=== PATIENT | female | born 1955 ===

== ENCOUNTER 2020-03-07 06:05 | Inpatient (IN) | payer BC ==
[2020-03-07] MEDS ORDERED: Cefepime 2 GM VIAL ONE (06:32)
[2020-03-07 07:02] LABS: ALT (SGPT) 36 U/L (8-55); AST (SGOT) 27 U/L (5-34); Albumin 2.2 g/dL (3.4-4.8); Alkaline Phosphatase 95 U/L (40-110); Anion Gap 16 mmol/L (10-20); BUN (Urea Nitrogen) 66 mg/dL (9.8-20.1); Bilirubin, Total 0.5 mg/dL (0.2-1.2); Calc. Creatinine Clearance 0 mL/min (70-130); Calcium 7.3 mg/dL (7.8-10.44); Carbon Dioxide 22 mmol/L (23-31); Chloride 99 mmol/L (98-107); Estimated GFR-MDRD 12; Globulin 2.2 g/dL (2.4-3.5); Glucose 109 mg/dL (80-115); Hemoglobin 8.2 g/dL (12.0-16.0); Lipase 17 U/L (8-78); Mean Corpuscular HGB CONC 31.7 g/dL (32.0-36.0); Mean Corpuscular Hemoglobin 28.4 pg (27.0-31.0); Mean Corpuscular Volume 89.7 fL (78.0-98.0); Mean Platelet Volume 8.6 fL (7.4-10.4); Platelet Count 154 thou/uL (130-400); Protein, Total 4.4 g/dL (6.0-8.3); RBC Distribution Width 18.1 % (11.5-14.5); Red Blood Cell (RBC) Count 2.88 mill/uL (4.20-5.40); Sodium 132 mmol/L (136-145); White Blood Cell (WBC) Count 20.2 thou/uL (4.8-10.8)
[2020-03-07 07:14] LABS: Bilirubin Negative (Negative); Blood, Urine Large (Negative); Glucose, Urine (Dipstick) Negative (Negative); Ketone, Urine Trace mg/dL (Negative); Leukocyte Trace (Negative); Nitrite Negative (Negative); Protein, Urine (Dipstick) > or equal to 300 mg/dL (Neg-Trace); Specific Gravity, Urine 1.025 (1.005-1.030); Urobilinogen 0.2 mg/dL (Less than 2); pH, Urine 5.5 (5.0-9.0)
[2020-03-07 07:18] LABS: Clarity Turbid (Clear)
[2020-03-07 07:21] LABS: Bacteria/HPF 3+ HPF (None Seen); RBC/HPF Greater than 50 HPF (0-3); Renal Epithelial 0-3 HPF (None Seen); WBC/HPF Greater Than 50 HPF (0-3)
[2020-03-07 07:21] LABS: Anisocytosis SLIGHT = 6-15 cells (100X) (0-5/hpf); Band 26 % (5-11); Basophilic Stippling SLIGHT = 1-2 cells (100X) (None Seen); Hypochromia SLIGHT = 6-15 cells (100X) (0-5/hpf); Lymphocytes 12 % (21-51); MDiff Complete? YES; Metamyelocyte 1 % (0-0); Monocytes 1 % (0-10); Neutrophil 60 % (42-75); Platelet Morphology Comment Appears Adequate; Polychromasia MODERATE = 3-4 cells (100X) (0-2/hpf); Toxic Granulation SLIGHT
[2020-03-07 07:25] LABS: CKMB 1.4 ng/mL (0-6.6)
--- NOTE | 2020-03-07 07:35 | CT ---
CT ABDOMEN AND PELVIS WITHOUT CONTRAST: Date: 03/07/2020 COMPARISON: None. HISTORY: Fever and sepsis. Right lower extremity osteomyelitis. Altered mental status and kidney injury. TECHNIQUE: Multiple contiguous axial images were obtained in a CT of the abdomen and pelvis without contrast. Sa gittal and coronal reformats were performed. FINDINGS: The liver, gallbladder, kidneys, adrenal glands, spleen, and pancreas are unremarkable, although eval uation is limited without IV contrast. No free air, free fluid, or stranding changes are seen in the abdomen or pelvis. The reproductive organs are unremarkable. A Hickman catheter decompresses the urinary bladder. The larg e and small bowel are unremarkable. The appendix is normal. No abdominal or pelvic lymphadenopathy se en. Atherosclerotic calcifications are seen in the aorta. Consolidation is seen in the right lower lobe. There are trace bilateral pleural effusions. The bones are unremarkable. There is a 5.2 cm lipoma along the oblique abdominal musculature on the left abdom inal wall. IMPRESSION: 1. No evidence of acute intra-abdominal/pelvic abnormality. 2. Right lower lobe pneumonia. POS: EAA
--- NOTE | 2020-03-07 07:45 | RAD ---
RADIOGRAPH CHEST 1 VIEW: DATE: 03/07/2020 TIME: 6:33 AM HISTORY: 64-year-old female with sepsis COMPARISON: none FINDINGS: Patchy airspace opacities at right lower and mid lung zones. Elevated right hemidiaphragm. No pulmona ry edema or cardiomegaly. Left lung clear. No pneumothorax. IMPRESSION: Right-sided atelectasis versus pneumonia.
--- NOTE | 2020-03-07 07:48 | PDOC.HHP ---
Hospitalist HPI - History of Present Illness History of Present Illness: please refer to reviewed H&P from same day Hospitalist Results - Labs Result Diagrams: 03/07/20 06:33 03/07/20 06:33 Lab results: WBC 20.2 thou/uL (4.8-10.8) H 03/07/20 06:33 Hgb 8.2 g/dL (12.0-16.0) L 03/07/20 06:33 Hct 25.8 % (36.0-47.0) L 03/07/20 06:33 MCV 89.7 fL (78.0-98.0) 03/07/20 06:33 Plt Count 154 thou/uL (130-400) 03/07/20 06:33 Band Neuts % (Manual) 26 % (5-11) H 03/07/20 06:33 Sodium 132 mmol/L (136-145) L 03/07/20 06:33 Potassium 5.0 mmol/L (3.5-5.1) 03/07/20 06:33 Chloride 99 mmol/L (98-107) 03/07/20 06:33 Carbon Dioxide 22 mmol/L (23-31) L 03/07/20 06:33 BUN 66 mg/dL (9.8-20.1) H 03/07/20 06:33 Creatinine 3.73 mg/dL (0.6-1.1) H 03/07/20 06:33 Glucose 109 mg/dL (80-115) 03/07/20 06:33 Lactic Acid 1.1 mmol/L (0.5-2.2) 03/07/20 06:33 Calcium 7.3 mg/dL (7.8-10.44) L 03/07/20 06:33 Total Bilirubin 0.5 mg/dL (0.2-1.2) 03/07/20 06:33 AST 27 U/L (5-34) 03/07/20 06:33 ALT 36 U/L (8-55) 03/07/20 06:33 Alkaline Phosphatase 95 U/L (40-110) 03/07/20 06:33 CK-MB (CK-2) 1.4 ng/mL (0-6.6) 03/07/20 06:33 Troponin I 0.123 ng/mL (< 0.028) H 03/07/20 06:33 Serum Total Protein 4.4 g/dL (6.0-8.3) L 03/07/20 06:33 Albumin 2.2 g/dL (3.4-4.8) L 03/07/20 06:33 Lipase 17 U/L (8-78) 03/07/20 06:33 Urine Ketones Trace mg/dL (Negative) A 03/07/20 06: Urine Blood Large (Negative) A 03/07/20: Urine Nitrite Negative (Negative) 03/07/20 06: Ur Leukocyte Esterase Trace (Negative) H 03/07/20 06:26 Urine RBC Greater than 50 HPF (0-3) A 03/07/20 06: Urine WBC Greater Than 50 HPF (0-3) A 03/07/20 06:26 Ur Squamous Epith Cells 4-6 HPF (0-3) A 03/07/20 06: Urine Bacteria 3+ HPF (None Seen) A 03/07/20 06:26
[2020-03-07] MEDS ORDERED: Sodium Chloride 0.9% 1,000 ML IV SCH (08:00)
[2020-03-07] MEDS ORDERED: Meropenem 2 GM in Sodium Chloride 0.9% 100 ML IVPB SCH (08:00)
[2020-03-07] MEDS ORDERED: Gabapentin 100 MG CAP PO SCH (09:00)
[2020-03-07] MEDS ORDERED: Doxycycline 100 MG in Syringe 0 ML IVPB SCH (09:00)
[2020-03-07] MEDS ORDERED: MEROPENEM 1 GM/50 ML 1 GM in Premix Bag 1 BAG IVPB SCH (14:00)
[2020-03-07] MEDS ORDERED: Meropenem 1 GM in Sodium Chloride 0.9% 100 ML IVPB SCH (14:00)
--- NOTE | 2020-03-07 14:59 | PDOC.HHP ---
Hospitalist HPI - History of Present Illness right lower lobe pneumonia and complicated UTI History of Present Illness: Shira Mackey is a 64 year old female who presents with drowsiness and fever. On Aug 18 2019 in [facility], she was diagnosed with central retinal artery occlusion in her right eye. She was having episodic periods of blindness in her right eye. A few days later she returned to the [place] and her reports she began having cyclic fevers ranging from 102F to 107F. She was then diagnosed with GCA and started on a prednisone taper. After her prednisone taper treatment she began to have swelling which caused skin fragility, resulting in RLE cellulitis and admission to [facility] for sepsis with pseudomonal bacteremia and oliguric MANNIE thought to be related to sepsis resulting in uremic encephalopathy. She completed treatment with cefepime (2 weeks) and her renal function and encephalopathy improved, and she was discharged [facility]. She initially improved but the day prior to discharge she became drowsy, so was sent to the ED. PMH: Hypothyroidism CKD GCA (on prednisone 12.5mg PO daily) Type II DM HTN PSH: Ovarian tumor removal (5-10 years ago) Medications: Reconciled Allergies: NKDA FHx: Mother: 5 years ago and had complicated type II diabetes Father: 10 years from an [place] Denies fever/chills, nausea, vomiting, fatigue, generalized weakness and rectal bleeding. ED Course: In the ED, she was found to be febrile, hypotensive, tachypnic and tachycardic. UA c/w UTI, subacute cedillo replaced, CXR showing RLL consolidation. Responded to fluids and was admitted to the floor for further management Hospitalist ROS - Review of Systems All other systems reviewed; all pertinent +/- noted in HPI/Subj Hospitalist History - Past Medical History Source: patient (as per HPI), family - Exam General Appearance: ill appearing General - other findings: drowsy Eye: PERRL, anicteric sclera ENT: normocephalic atraumatic, no oropharyngeal lesions, dry oral mucosa Neck: no JVD Neck - other findings: no neck stiffness Heart: RRR, no murmur, no gallops, no rubs, normal peripheral pulses Respiratory: CTAB, no wheezes, no rales, no ronchi, normal chest expansion Gastrointestinal: soft, non-tender, non-distended, normal bowel sounds, no palpable masses, no guarding, no rigidity Extremities: no cyanosis, no clubbing, 1+ LE edema Skin - other findings: multiple RLE superficial patchy excoriation, appear noninfected Psychiatric: normal affect, normal behavior, A&O x 3 Hospitalist Results - Labs Result Diagrams: 03/07/20 06:33 03/07/20 06:33 Lab results: WBC 20.2 thou/uL (4.8-10.8) H 03/07/20 06:33 Hgb 8.2 g/dL (12.0-16.0) L 03/07/20 06:33 Hct 25.8 % (36.0-47.0) L 03/07/20 06:33 MCV 89.7 fL (78.0-98.0) 03/07/20 06:33 Plt Count 154 thou/uL (130-400) 03/07/20 06:33 Band Neuts % (Manual) 26 % (5-11) H 03/07/20 06:33 Sodium 132 mmol/L (136-145) L 03/07/20 06:33 Potassium 5.0 mmol/L (3.5-5.1) 03/07/20 06:33 Chloride 99 mmol/L (98-107) 03/07/20 06:33 Carbon Dioxide 22 mmol/L (23-31) L 03/07/20 06:33 BUN 66 mg/dL (9.8-20.1) H 03/07/20 06:33 Creatinine 3.73 mg/dL (0.6-1.1) H 03/07/20 06:33 Glucose 109 mg/dL (80-115) 03/07/20 06:33 Lactic Acid 1.1 mmol/L (0.5-2.2) 03/07/20 06:33 Calcium 7.3 mg/dL (7.8-10.44) L 03/07/20 06:33 Total Bilirubin 0.5 mg/dL (0.2-1.2) 03/07/20 06:33 AST 27 U/L (5-34) 03/07/20 06:33 ALT 36 U/L (8-55) 03/07/20 06:33 Alkaline Phosphatase 95 U/L (40-110) 03/07/20 06:33 CK-MB (CK-2) 1.4 ng/mL (0-6.6) 03/07/20 06:33 Troponin I 0.123 ng/mL (< 0.028) H 03/07/20 06:33 Serum Total Protein 4.4 g/dL (6.0-8.3) L 03/07/20 06:33 Albumin 2.2 g/dL (3.4-4.8) L 03/07/20 06:33 Lipase 17 U/L (8-78) 03/07/20 06:33 Urine Ketones Trace mg/dL (Negative) A 03/07/20 06:26 Urine Blood Large (Negative) A 03/07/20 06:26 Urine Nitrite Negative (Negative) 03/07/20 06:26 Ur Leukocyte Esterase Trace (Negative) H 03/07/20 06:26 Urine RBC Greater than 50 HPF (0-3) A 03/07/20 06:26 Urine WBC Greater Than 50 HPF (0-3) A 03/07/20 06:26 Ur Squamous Epith Cells 4-6 HPF (0-3) A 03/07/20 06:26 Urine Bacteria 3+ HPF (None Seen) A 03/07/20 06:26 - Radiology Interpretation Chest x-ray Status: report reviewed by me Additional Comment: RLL consolidation Hospitalist H&P A/P - Problem (1) Right lower lobe pneumonia Code(s): J18.9 - PNEUMONIA, UNSPECIFIED ORGANISM Status: Acute Qualifiers: Pneumonia type: aspiration pneumonia (2) Complicated UTI (urinary tract infection) Code(s): N39.0 - URINARY TRACT INFECTION, SITE NOT SPECIFIED Status: Acute (3) Wound of left lower extremity Code(s): S81.802A - UNSPECIFIED OPEN WOUND, LEFT LOWER LEG, INITIAL ENCOUNTER Status: Acute - Plan Plan: #Sepsis #aspiration pneumonia/HAP -qSOFA 2/3 on presentation; responded to fluid resuscitation -per , multiple coughing episodes while drowsy day prior to presentation ; CXR c/w aspiration, febrile, neutrophilia with bandemia -Cedillo placed 3 weeks ago; UA contaminated; replaced on presentation; -ID consulted -started empiric meropenem, linezolid, and doxycyline -Match I/O -repeat UA -Blood culture; respiratory culture #MANNIE on CKD -likely related to reduced effective perfusion in context of third spacing due to hypoalbuminemia and extensive RLE injury -IVF with albumin to increase oncotic pressure and bring back fluids from third space intravascularly -nephrology onboard #RLE superficial excoriations s/p extensive cellulitis -wound care consulted #GCA -continue home prednisone 12.5mg PO qd #hypothyroidism continue home levothyroxine 112mcg PO 0600 #HTN -hold antiHTN in context of sepsis; hold torsemide Dispo/PPx: full code. is MPOA GI PPx: pantoprazole DVT PPx: lovenox
[2020-03-07] MEDS ORDERED: Albumin 25% 25 GM/100 ML BOT IVPB SCH (16:00)
--- NOTE | 2020-03-07 16:35 | PRG ---
DATE OF SERVICE: 03/07/2020 REASON FOR CONSULTATION: [id number] renal failure. REQUESTING PHYSICIAN: Dr. Redmond. CHIEF COMPLAINT: Fever. HISTORY OF PRESENT ILLNESS: A 64-year-old female known to me from [facility] with multiple comorbidities including diabetes, hypertension, CKD with recent acute kidney injury, and physical deconditioning, now transferred over to [facility] due to acute onset of fever. The patient yesterday was noted to be lethargic, which was felt to be related to medication. She also was having chills. Later, the patient developed fever and was subsequently brought to the hospital. On initial presentation to this hospital, temperature was 100.9, which later went up to 102.2. Initial blood pressure was 130/66 with pulse of 96. However, during the course of ED evaluation, blood pressure did drop to a neither of 93/47 and improved with fluid resuscitation. The patient is more awake today. She was complaining of neuropathy and did receive Neurontin earlier today. There was no history of nausea, vomiting. Evaluation with CT scan of the abdomen showed right lower lung consolidation as well as mild bilateral pleural effusion and impression of pneumonia with sepsis to rule out urinary tract infection was made and the patient was started on broad-spectrum antibiotics. It was also noted that creatinine is up related to yesterday's figures. OBJECTIVE: VITAL SIGNS: Temperature 98.9, pulse 85, respiratory rate 18, SpO2 of 98% on room air, blood pressure is 117/50. GENERAL: Clinically ill-looking female, in no obvious distress. Afebrile, acyanotic. HEENT: Normocephalic, atraumatic. Oral mucosa is moist. NECK: Supple with no JVD. CARDIOVASCULAR: Regular rhythm and rate with normal heart sounds 1 and 2. RESPIRATORY: Fair air entry bilaterally with some transmitted breath sounds as well as crackles in right base. No respiratory distress was appreciated however. GI: Full, soft, nontender, nondistended with normal bowel sounds. UROGENITAL: Hickman catheter is in place draining some urine. MUSCULOSKELETAL: Right lower extremity wound with dressing extending from foot to the distal thigh. Generalized edema of the extremities as well as back noted. 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 Opens eye with stimulation and call. Oriented to person and place. Cranial nerves 2 through 12 are grossly intact. DIAGNOSTIC DATA: CBC today showed WBC count of 20.2, hemoglobin of 8.2, MCV of 89.2, platelet of 154. Chemistry showed sodium 132, potassium 5.0, chloride 99, CO2 of 22, BUN 66, creatinine 3.73, glucose 109, calcium 7.3, total bilirubin 0.5, AST 27, ALT 36, alkaline phosphatase 95, total protein 4.4, albumin 2.2, globulin 2.2. Lipase is 17. Lactic acid is 1.1. Initial cardiac markers showed troponin 0.123 and CK-MB 1.4. Urinalysis today showed turbid yellow urine with pH of 5.56 and specific gravity of 1.025. Protein is greater or equal to 300, ketone trace, blood large, nitrite negative, bilirubin negative, leukocyte esterase trace. Microscopy showed greater than 50 RBC and greater than 50 WBC with 3+ bacteria. Has Hickman catheter. Of note, chemistry yesterday showed BUN 62, creatinine 3.06. Urinalysis performed yesterday showed protein 300, negative nitrite, positive leukocyte esterase. Microscopy showed greater than 50 RBC and 21-50 WBC. Urine electrolytes showed random total protein of 749 with urine creatinine of 125 and calculated UPC of about 5 g/g of protein. Urine sodium was 22 and urine urea was 303. ASSESSMENT: 1. Acute kidney injury: Due to hemodynamic factors related to sepsis from either UTI and/or pneumonia. Contribution of intravascular contraction cannot be ruled out, given the patient was on diuretics and had severe hypoalbuminemia associated with anasarca. This was also noted that urine output has decreased recently. 2. Chronic kidney disease stage 3, at baseline. 3. Nephrotic-range proteinuria: Due to diabetic nephropathy. 4. Anasarca: Due to nephrotic-range proteinuria, volume resuscitation. Reportedly improved prior to discharge from [facility] in [place]. 5. Transient hypotension: Improved with IV fluid therapy. 6. Hypoalbuminemia. 7. Acute metabolic and toxic encephalopathy. PLAN: 1. Agree with fluid resuscitation. We will add albumin to expand intravascular space as well as help mobilize the third space fluid. 2. We will hold diuretics at this point. 3. We will monitor hemodynamics closely as well as urine intake, urine output. 4. Antibiotics as per primary attending. 5. Medication should be renally dosed. 6. Further treatment to follow depending on hospital course. We will recheck renal function test in the morning. Job ID: [id number]
[2020-03-07] MEDS ORDERED: DARBEPOETIN ALFA IN POLYSORBAT 60 MCG SC SCH (17:45)
[2020-03-07 18:27] LABS: Legionella Urinary Ag Negative (Negative); Strep pneumo Urine Ag NEGATIVE (NEGATIVE)
[2020-03-07 18:30] VITALS: BMI 28.4
[2020-03-07] MEDS: Enoxaparin Sodium 30 MG/0.3 ML SYRINGE SC SCH (21:05)
[2020-03-07] MEDS: Sodium Chloride 0.9% 1,000 ML IV SCH (21:05)
[2020-03-07 21:22] LABS: Bilirubin Negative (Negative); Blood, Urine 2+ (Negative); Clarity Turbid (Clear); Glucose, Urine (Dipstick) 300 mg/dL (Negative); Ketone, Urine Trace mg/dL (Negative); Leukocyte 250 Leu/uL (Negative); Nitrite Negative (Negative); Protein, Urine (Dipstick) 600 mg/dL (Neg-Trace); Specific Gravity, Urine 1.022 (1.002-1.036); Squamous Epithelial 0-3 HPF (0-3); Urobilinogen Normal mg/dL (Less than 2); WBC/HPF Greater than 50 HPF (0-3)
[2020-03-07] MEDS: Atorvastatin Calcium 40 MG TAB PO SCH (21:24)
[2020-03-07] MEDS: Senokot S 8.6-50 MG TAB PO SCH (21:24)
[2020-03-07] MEDS: Meropenem 500 MG in Sodium Chloride 0.9% 100 ML IVPB SCH (21:28)
[2020-03-07 21:38] LABS: Bacteria/HPF 2+ HPF (None Seen); Yeast-Budding 1+ HPF (None Seen)
[2020-03-07] MEDS: Gabapentin 100 MG CAP PO SCH (21:42)
[2020-03-07] MEDS: Linezolid 600 MG in Premix Bag 1 BAG IVPB SCH (22:09)
--- NOTE | 2020-03-07 23:25 | CON ---
DATE OF CONSULTATION: 03/07/2020 REASON FOR CONSULTATION: Fever. HISTORY OF PRESENT ILLNESS: A 64-year-old patient with history of giant cell arteritis, which is basically a clinical diagnosis, on prednisone and previously on tocilizumab, who was admitted to [facility] within the past 2 to 3 months for cellulitis in the right lower extremity associated with Pseudomonas aeruginosa bacteremia. The patient was transferred to [facility] in [place]. It is not clear the reason for the transfer, but she was there switched to cefepime. She was given clindamycin as well. I was able to review the records from both hospitals and there was no evidence that the patient had osteomyelitis. She was [facility] and she developed fever and was brought here for evaluation and was admitted. Initial findings included BP 130/66, pulse of 96, temperature 102.2, and O2 saturation was 97% on room air. On the exam in the emergency room, the only findings included bruising from prior abdominal subcu heparin shots and healed wounds in the right leg with good pulses. She was confused and thought that she was in a factory, not in the hospital, although she knew her name. Other findings on admission include a white cell count of 20.2, hemoglobin 8.2, platelets 154 with 26% bands. Her sodium was 132. Her creatinine is 3.73. Her creatinine in [facility] was 4.3, so this is actually a relative improvement compared with previous findings. Urinalysis with greater than 50 wbc's. Currently, Ms. Mackey is somewhat confused. She is complaining of pain in the lower extremities, particularly on the right side. She describes the pain as a burning sensation. She also has mild pain in the lower back, which is new according to her. She denies headaches. No visual symptoms, sore throat, odynophagia, or dysphagia. She is not dyspneic. Has no chest pain. PAST MEDICAL HISTORY: Hypothyroidism; dyslipidemia; type 2 diabetes; hypertension; CKD, stage 4; giant cell arteritis, clinical diagnosis, on chronic corticosteroids; recurrent episodes of delirium; cellulitis due to Pseudomonas aeruginosa with bacteremia; seizure activity; and hypertension. ALLERGY HISTORY: Negative. MEDICATION LIST: Includes, 1. Norvasc. 2. Doxycycline. 3. Enoxaparin. 4. Meropenem. 5. Prednisone. 6. Torsemide. FAMILY HISTORY: Noncontributory. SOCIAL HISTORY: Never smoker. . Lives in the area. PHYSICAL EXAMINATION: VITAL SIGNS: Temperature in the emergency room was 102, currently 97.5; blood pressure 108/53; pulse 83; respirations 18; and O2 saturation 98% on room air. SKIN: She has areas of the previous blisters and now they have normal skin, just hypopigmented. Quite extensive areas of this new fresh hypopigmented skin noted. She has a little bit of bruising in the abdominal area, but no other open sores are noted. Has quite a bit of tenderness on the surface of these lesions. One of the areas is sort of light yellow surface in an irregular distribution along the anterior surface of the distal right leg. No lymphadenopathy. HEENT: Ocular movements conjugate. She has periorbital edema. Pupils are equal. Oral cavity with numerous teeth in place with little decay. Oral cavity is normal. NECK: Supple. No jugular vein distention. No carotid bruits. LUNGS: Symmetric. Clear breath sounds. HEART: S1 and S2. Regular rate. No S3 or S4. ABDOMEN: Soft with mild tenderness. : No bladder distention. She has a Hickman catheter in place. EXTREMITIES: She is able to move extremities but is diffusely weak. Pulses are 1+ in dorsalis pedis. Plantar responses are flexor. No clonus. NEUROLOGIC: She is awake and now she is kind of confused and delirious, knows her name but could not tell me where she was or the date. She was able to follow some commands. LABORATORY DATA: Lab data has been reviewed above. Lactic acid 1.1. Albumin 2.2, globulin 2.2. IMAGING DATA: She had an abdomen and pelvis CT scan, which showed right lower lobe inflammatory process with consolidation in right lower lobe, trace bilateral pleural effusions. ASSESSMENT: 1. Giant cell arteritis, on chronic steroids and previously on tocilizumab. 2. Type 2 diabetes. 3. Chronic kidney disease, stage 4. 4. Recent cellulitis secondary to Pseudomonas aeruginosa, which required extensive stay at both [facility], here and in [place]. There is no evidence to suggest that the patient had osteomyelitis per review of the records from [place]. She did have evaluation for meningitis with cerebrospinal fluid and that ruled out meningitis. 5. Recurrence of fever, altered mental state, and leukocytosis with bandemia. 6. Abnormal urinalysis with indwelling Hickman catheterization. DISCUSSION: Differential diagnosis includes recurrence of bacteremia at this time due to urinary tract pathogen versus an alternate source of bacteremia. She does have abnormal chest x-ray and the possibility of respiratory tract dissemination from the urinary tract is conceivable versus an aspiration pneumonia. In this day and age, COVID is always a concern and I think we should evaluate for it if it has not been ruled out yet. It may have already been done at the rehab. She is right now on doxycycline and meropenem and I would probably add vancomycin to the mix or linezolid. Job ID: [id number]
[2020-03-07] MEDS: Albumin 25% 25 GM/100 ML BOT IVPB SCH (23:57)
[2020-03-08] MEDS ORDERED: Dextrose 50% Abboject 50 ML SYRINGE IVP PRN ×2 (00:51→13:53)
[2020-03-08] MEDS ORDERED: Dextrose 5% in Water 1,000 ML IV PRN ×2 (00:51→13:53)
[2020-03-08] MEDS: HumaLOG 300 UNITS/3 ML VIAL SC PRN ×4 (01:07→16:23)
[2020-03-08] MEDS: Meropenem 500 MG in Sodium Chloride 0.9% 100 ML IVPB SCH ×2 (05:05→18:23)
[2020-03-08] MEDS: Albumin 25% 25 GM/100 ML BOT IVPB SCH ×2 (05:05→16:21)
[2020-03-08] MEDS: Levothyroxine Sodium 112 MCG TAB PO SCH (05:06)
[2020-03-08] MEDS: Sodium Chloride 0.9% 1,000 ML IV SCH (05:06)
[2020-03-08 07:02] LABS: Anion Gap 17 mmol/L (10-20); BUN (Urea Nitrogen) 70 mg/dL (9.8-20.1); Calc. Creatinine Clearance 17 mL/min (70-130); Calcium 7.7 mg/dL (7.8-10.44); Carbon Dioxide 18 mmol/L (23-31); Chloride 101 mmol/L (98-107); Estimated GFR-MDRD 11; Glucose 279 mg/dL (80-115); Potassium 5.9 mmol/L (3.5-5.1); Sodium 130 mmol/L (136-145)
--- NOTE | 2020-03-08 07:13 | PDOC.HOSPP ---
- Subjective Encounter Date: 03/08/20 Encounter Time: 08:50 Subjective: Was seen at the beside this morning. She appears to be doing well compared to yesterday but is still appearing weak and is still experiencing pain from her right leg. - Objective Vital Signs & Weight: Vital Signs (12 hours) Temp Pulse Resp BP Pulse Ox 03/08/20 03:00 98 F 80 16 120/50 L 97 Weight Weight 165 lb 9.6 oz I&O: 03/07/20 03/08/20 03/09/20 06:59 06:59 06:59 Intake Total 1500 Output Total 425 Balance 1075 Result Diagrams: 03/08/20 07:25 03/08/20 06:35 Hospitalist ROS - Review of Systems Constitutional: reports: weakness, other (pain from right leg). denies: fever, chills Respiratory: denies: cough, dry, shortness of breath Cardiovascular: reports: edema. denies: chest pain, palpitations, orthopnea Gastrointestinal: denies: nausea, vomiting, abdominal pain, diarrhea, constipation Musculoskeletal: reports: leg pain, foot pain - Medication Medications: Active Medications Generic Name Dose Route Start Last Admin Trade Name Freq PRN Reason Stop Dose Admin Albumin Human 25 gm 03/07/20 22:00 03/08/20 05:05 Albumin 25% IVPB 03/08/20 14:01 25 gm Q8HR SIMEON Administration Atorvastatin Calcium 80 mg 03/07/20 21:00 03/07/20 21:24 Lipitor PO 80 mg HS SIMEON Administration Enoxaparin Sodium 30 mg 03/07/20 09:00 03/07/20 21:05 Lovenox SC Not Given 0900 SIMEON Gabapentin 200 mg 03/07/20 21:00 03/07/20 21:42 Neurontin PO Not Given BID SIMEON Doxycycline Hyclate 100 mg/ 100 mls @ 100 mls/hr 03/07/20 21:00 03/07/20 22: 09 Sodium Chloride IVPB 100 mls Q12HR SIMEON Administration Sodium Chloride 1,000 mls @ 100 mls/hr 03/07/20 08:00 03/08/20 05:06 Normal Saline 0.9% IV 1,000 mls .Q10H SIMEON Administration Linezolid 600 mg/ Device 300 mls @ 150 mls/hr 03/07/20 21:00 03/07/20 22:09 IVPB 300 mls Q12HR SIMEON Administration Meropenem 500 mg/ Sodium 100 mls @ 200 mls/hr 03/07/20 18:00 03/08/20 05:05 Chloride IVPB 100 mls 0600,1800 SIMEON Administration Insulin Human Lispro 0 units 03/08/20 00:50 03/08/20 05:46 Humalog SC 8 units .MODERATE SLIDING SC PRN Administration MODERATE SLIDING SCALE Protocol Levothyroxine Sodium 112 mcg 03/08/20 06:00 03/08/20 05:06 Synthroid PO 112 mcg 0600 SIMEON Administration Senna/Docusate Sodium 1 tab 03/07/20 21:00 03/07/20 21:24 Senokot S PO 1 tab BID SIMEON Administration Sodium Chloride 10 ml 03/07/20 09:00 03/07/20 21:06 Flush - Normal Saline IVF Not Given Q12HR SIMEON - Exam General Appearance: awake alert, ill appearing Heart: RRR, no murmur, no gallops, no rubs, normal peripheral pulses Respiratory: no wheezes, no rales, no ronchi, normal chest expansion Gastrointestinal: soft, non-tender, non-distended Extremities - other findings: anasarca Psychiatric: normal affect, normal behavior, A&O x 3 Hosp A/P (1) Complicated UTI (urinary tract infection) Code(s): N39.0 - URINARY TRACT INFECTION, SITE NOT SPECIFIED Status: Acute (2) Right lower lobe pneumonia Code(s): J18.9 - PNEUMONIA, UNSPECIFIED ORGANISM Status: Acute Qualifiers: Pneumonia type: aspiration pneumonia (3) Wound of left lower extremity Code(s): S81.802A - UNSPECIFIED OPEN WOUND, LEFT LOWER LEG, INITIAL ENCOUNTER Status: Acute - Plan RLL Pneumonia -qSOFA 0/3; no longer septic -continue empiric meropenem, linezolid; stopped doxycycline complicated UTI -repeat UA shows bacteriuria nad pyuria -pending urine culture -continue abovementioned antibiotics -ID onboard MANNIE over CKD worse GFR likely related to reduced effective perfusion in context of third spacing due to hypoalbunemia and extensive RLE injury on fluids containing albumin as per nephrology RLE superficial excoriations with extensive cellulitis -wound care consulted -gabapentin reduced from 200bid to 300 once daily considering renal function; defer to nephrology GCA -continue home prednisone 12.5mg PO qd
[2020-03-08 07:43] LABS: #Basophils 0.1 thou/uL (0.0-0.2); #Eosinphils 0.3 thou/uL (0.0-0.7); #Lymphocytes 1.5 thou/uL (1.20-3.40); #Monocytes 0.5 thou/uL (0.11-0.59); #Neutrophils 10.8 thou/uL (1.40-6.50); %Basophils 0.5 % (0.0-1.0); %Eosinophils 2.3 % (0.0-10.0); %Lymphocytes 11.7 % (21.0-51.0); %Monocytes 3.7 % (0.0-10.0); %Neutrophils 81.8 % (42.0-75.0); Mean Corpuscular HGB CONC 32.4 g/dL (32.0-36.0); Mean Corpuscular Hemoglobin 29.6 pg (27.0-31.0); Mean Corpuscular Volume 91.5 fL (78.0-98.0); Mean Platelet Volume 8.6 fL (7.4-10.4); Platelet Count 120 thou/uL (130-400); RBC Distribution Width 17.2 % (11.5-14.5); Red Blood Cell (RBC) Count 2.37 mill/uL (4.20-5.40); White Blood Cell (WBC) Count 13.2 thou/uL (4.8-10.8)
[2020-03-08] MEDS ORDERED: Albuterol Sulfate 2.5 mg/3 ml Neb NEB SCH (08:22)
[2020-03-08] MEDS ORDERED: Sodium Bicarbonate 150 MEQ in Dextrose 5% in Water 1,000 ML IV SCH (08:30)
[2020-03-08] MEDS: predniSONE 5 MG TAB PO SCH (08:57)
[2020-03-08] MEDS: Ferrous Sulfate 325 MG TAB PO SCH ×3 (08:58→19:55)
[2020-03-08] MEDS: Aspirin 81 mg Enteric Coated Tablet PO SCH (08:58)
[2020-03-08] MEDS: Enoxaparin Sodium 30 MG/0.3 ML SYRINGE SC SCH (08:59)
[2020-03-08] MEDS: Gabapentin 100 MG CAP PO SCH (08:59)
[2020-03-08] MEDS ORDERED: INSULIN DETEMIR SC SCH (09:00)
[2020-03-08] MEDS ORDERED: Insulin Glargine 30 UNITS in Pre-Filled Syringe 1 EACH SC SCH (09:00)
[2020-03-08] MEDS ORDERED: Torsemide 20 MG TAB PO SCH (09:00)
[2020-03-08] MEDS ORDERED: Polyethylene Glycol 3350 17 GM Packet PO SCH (09:00)
[2020-03-08] MEDS ORDERED: Amlodipine 5 MG TAB PO SCH (09:00)
[2020-03-08] MEDS ORDERED: Aspirin 81 mg Enteric Coated Tablet PO SCH (09:00)
[2020-03-08] MEDS: Sodium Bicarbonate Tab 325 MG TAB PO SCH ×2 (09:02→19:56)
--- NOTE | 2020-03-08 09:13 | PRG ---
DATE OF SERVICE: 03/08/2020 SERVICE: Nephrology. SUBJECTIVE: A 64-year-old female, seen in followup for acute kidney injury and hyperkalemia. The patient was admitted due to new-onset fever and subsequently found to have sepsis, thought to be from pneumonia and possibly UTI. Mental status has improved. The patient is conversational and seems very comfortable today. Denied nausea, vomiting. Fever has subsided also. OBJECTIVE: VITAL SIGNS: Temperature 98.3, pulse 80, respiratory rate 16, SpO2 of 97% on room air, and blood pressure is 120/50. Intake and output in the last 24 hours showed total intake of 1500 with total output . Of note, this is inconclusive as intake in the ER was not included in this. GENERAL: Comfortable female, in no obvious distress. Afebrile. Anicteric. Acyanotic. HEENT: Normocephalic, atraumatic. Oral mucosa is moist. NECK: Supple with no obvious JVD. CARDIOVASCULAR: Regular rhythm and rate with normal heart sounds 1 and 2. RESPIRATORY: Fair air entry bilaterally with a few transmitted breath sounds as well as right basal crackles posteriorly. GI: Abdomen is full, soft, nondistended, nontender with normal bowel sounds. UROGENITAL: Hickman catheter is in place draining some urine. MUSCULOSKELETAL: Diffuse edema of the extremities as well as lower back noted. Wound on dressing on the anterior aspect of leg extending to distal thigh and foot noted. KIER TENDER: Conscious and alert and oriented x3 with appropriate mental status. Cranial nerves 2 through 12 are grossly intact. The patient moves all extremities but weakly. DIAGNOSTIC DATA: CBC today showed WBC count of 13.2, hemoglobin of 7.0, MCV of 91.5, and platelets of 120. Chemistry showed sodium 130, potassium 5.9, chloride 101, CO2 of 18, BUN 70, creatinine 3.98, glucose 279, and calcium 7.7. ASSESSMENT: 1. Acute kidney injury: Due to hemodynamic factors related to volume contraction and sepsis. Creatinine is still trending up despite IV fluid therapy. Acute tubular necrosis is a concern. 2. Hyperkalemia: New onset: Most likely due to acute on chronic renal failure with worsening metabolic acidosis. Potassium today is 5.9. 3. Hyponatremia: Most likely related to intravascular contraction with appropriate ADH secretion. Syndrome of inappropriate secretion of antidiuretic hormone is a concern. 4. Metabolic acidosis: Due to sepsis and hyperchloremic acidosis from use of normal saline. 5. Acute kidney injury also is contributory. 6. Hypocalcemia: Etiology is unclear. Hypoalbuminemia as well as possible vitamin D deficiency is a concern. 7. Anasarca: Due to hypoalbuminemia. 8. Severe hypoalbuminemia: Due to proteinuria related to diabetic nephropathy. 9. Nephrotic range proteinuria. 10. Hypertension: Blood pressure normal at this point. Antihypertensive is held. PLAN: 1. We will get stat EKG. 2. We will also treat the patient with albuterol inhalation as well as Kayexalate. We will also start the patient on bicarb infusion and discontinue normal saline. 3. We will continue albumin infusion to expand intravascular space and help with third space fluid mobilization. 4. We will continue to hold antihypertensive as well as diuretic at this point. 5. We will also get vitamin D. 6. We will continue erythrocyte-stimulating agent. 7. We will also get iron chemistry with a view to repleting iron store if indicated. 8. Antibiotics as per primary attending and Infectious Disease. 9. We will recheck BMP later this afternoon to ascertain improvement in electrolytes. Further treatment to follow depending on hospital course. Job ID: [id number]
[2020-03-08] MEDS ORDERED: Dextrose 50% Abboject 50 ML SYRINGE SLOW IVP SCH (09:47)
[2020-03-08] MEDS ORDERED: Insulin Regular 300 UNITS/3 ML VIAL IVP SCH (09:47)
[2020-03-08] MEDS: Acetaminophen 500 MG TAB PO PRN ×2 (12:59→19:59)
[2020-03-08] MEDS: Senokot S 8.6-50 MG TAB PO SCH ×2 (13:01→19:55)
[2020-03-08] MEDS: Linezolid 600 MG in Premix Bag 1 BAG IVPB SCH ×2 (13:09→19:57)
[2020-03-08] MEDS ORDERED: HumaLOG 300 UNITS/3 ML VIAL SC PRN (13:53)
[2020-03-08 16:24] LABS: Anion Gap 13 mmol/L (10-20); BUN (Urea Nitrogen) 67 mg/dL (9.8-20.1); Calc. Creatinine Clearance 18 mL/min (70-130); Carbon Dioxide 22 mmol/L (23-31); Chloride 97 mmol/L (98-107); Estimated GFR-MDRD 12; Glucose 353 mg/dL (80-115); Potassium 5.2 mmol/L (3.5-5.1); Sodium 127 mmol/L (136-145)
--- NOTE | 2020-03-08 16:32 | PRG ---
DATE OF SERVICE: 03/08/2020 SUBJECTIVE: Ms. Mackey is still complaining about the symptoms in the right lower extremity, which may be construed as representing neuropathic pain. She is not having headaches. No shortness of breath or abdominal pain. She is voiding with a Hickman catheter assistance. She is able to eat, ate her lunch today. OBJECTIVE: VITAL SIGNS: The temperature continues to be within normal limits. O2 saturations went down a bit to 92%, BP 129/60, pulse 83, respirations 18. GENERAL: She is awake and alert. She knows that she is in the hospital. She was able to tell me the name of the city and the hospital's name as well. She knew the year and the month. HEENT: Periorbital edema. LUNGS: Symmetric. Clear breath sounds. HEART: S1 and S2, regular rate. ABDOMEN: Soft, not distended. EXTREMITIES: She has a fear of moving her right lower extremity because of the symptoms generated. LABORATORY DATA: White cell count is down to 13,000, hemoglobin 7, platelets 120,000, and 81% neutrophils. Sodium 130, creatinine 3.98. Troponin 0.123. Albumin 2.2. Cryptococcus antigen negative. Two sets of blood cultures, no growth to date. I do not see a urine culture sample submitted. ASSESSMENT AND DISCUSSION: Nephrology has seen the patient and the impression is acute kidney injury; tubular necrosis, possible; hyperkalemia; hyponatremia; metabolic acidosis; hypoalbuminemia; proteinuria; giant cell arteritis, on chronic steroids and previously on tocilizumab; type 2 diabetes; chronic kidney disease, stage 4 to 5; cellulitis, treated at [facility]; bacteremia due to Pseudomonas aeruginosa. The skin lesions have healed and now she has a hypopigmented epithelium replacing the site. The sample of urine was not submitted, which will hinder identification of a pathogen here since the most likely scenario is the urinary tract infection. The other possibility would be a respiratory infection, the primary pneumonia. Airspace opacities located in the right lower and mid lung zones. This was more clearly demonstrated in the CT scan of the abdomen. She is currently on Zyvox and meropenem. We will have the nurse submit a sample of urine for culture, although I doubt this is going to be helpful since it is being submitted after quite a few doses of antimicrobial therapy. Job ID: [id number]
--- NOTE | 2020-03-08 16:42 | PQF ---
CLINICAL DOCUMENTATION CLARIFICATION FORM: Dear Dr. Lupe PENA Date / Time: 03/08/2020 3242 Please exercise your independent, professional judgment in responding to the clarification form. Clinical indicators are provided on the bottom of this form for your review. Please check appropriate box(es): [ ] Sepsis due to: [ ] UTI Due to: [ ] Indwelling Negrete Catheter [ ] Sepsis Not Due to: [ ] UTI Due to :[ ] Indwelling Negrete Catheter [ ] Severe sepsis with associated acute organ dysfunction: [ ] Acute Kidney injury w/o ATN [ ] Aspiration Pneumonia [ ] Encephalopathy (metabolic) [ ] Additional/Other: please specify: [ ] Septic Shock [ ] Localized infection without sepsis [ ] Other diagnosis [ x ] Unable to determine In addition, please specify: Present on Admission (POA): [ x ] Yes [ ] No [ ] Unable to determine For continuity of documentation, please document condition throughout progress notes and discharge summary. Thank You. To be completed by CDI/Coding staff for physician review: CLINICAL INDICATORS - SIGNS / SYMPTOMS / LABS / RESULTS AND LOCATION IN MR 03/07 WBC 20.2 BANDS 26 03/08 WBC 13.2 03/07 ED REPORT: TEMP 102.2, PT HAS NEGRETE SECURITY SYSTEMS MANAGER, FINAL DX SEPSIS, AMS, HEALTHCARE ASS[employer]IATED PNEUMONIA, UTI 03/07 H&P ( SINJA) A/P: 1). RIGHT LOWER LOBE PNEUMONIA, ASPIRATION PNEUMONIA. 2) . COMPLICATED UTI -NEGREET PLACED 3 WEEKS AGO, UA CONTAMINATED, REPLACED ON PRESENTATION 03/07 PN (OBI) ASSESSMENT: 1). MANNIE : DUE TO HEMODYNAMIC FACTORS RELATED TO SEPSIS FROM EITHER UTI AND /OR PNEUMONIA. 03/07 CONSULT (LANI) ASSESSMENT: 6). ABNORMAL URINALYSIS WITH INDWELLING NEGRETE CATHETERIZATION 03/08 PN (BECKY) COMPLICATED UTI- REPEAT UA SHOWS BACTERIURIA AND PYURIA RISK FACTORS / RESULTS AND LOCATION IN MR DX : RIGHT LOWER LOBE PNEUMONIA, COMPLICATED UTI, CHRONIC INDWELLING NEGRETE CATHETER ( PN/ SINJA) 03/07 TREATMENTS / RESULTS AND LOCATION IN MR ID CONSULT ( LANI/03/07) MEROPENEM IV ( 03/07 PRESENT) THANK YOU! DIONNE CDS Signature: DIONNE HERNANDEZ RN Phone #: [phone] Date: 1644 This is a permanent part of the Medical Record [facility]
[2020-03-08] MEDS ORDERED: HumaLOG 300 UNITS/3 ML VIAL SC SCH (17:00)
[2020-03-08] MEDS ORDERED: Gabapentin 100 MG CAP PO SCH (17:00)
[2020-03-08] MEDS ORDERED: LIDOCAINE 4% Topical Sol 4 ML SOLN.PK.G. TP PRN (17:10)
[2020-03-08] MEDS: Atorvastatin Calcium 40 MG TAB PO SCH (19:55)
[2020-03-08] MEDS ORDERED: Insulin Regular 300 UNITS/3 ML VIAL SC PRN (21:46)
[2020-03-09] MEDS: Meropenem 500 MG in Sodium Chloride 0.9% 100 ML IVPB SCH ×2 (05:10→23:26)
[2020-03-09] MEDS: Levothyroxine Sodium 112 MCG TAB PO SCH (05:10)
[2020-03-09] MEDS ORDERED: Dextrose 5% in Water 1,000 ML IV PRN (07:03)
[2020-03-09] MEDS ORDERED: hydrALAZINE 20 MG/ML VIAL SLOW IVP PRN (07:08)
[2020-03-09] MEDS: predniSONE 5 MG TAB PO SCH (08:59)
[2020-03-09] MEDS: Senokot S 8.6-50 MG TAB PO SCH ×2 (08:59→21:10)
[2020-03-09] MEDS: Gabapentin 300 MG CAP PO SCH (08:59)
[2020-03-09] MEDS: Sodium Bicarbonate Tab 325 MG TAB PO SCH ×2 (08:59→21:10)
[2020-03-09] MEDS: Aspirin 81 mg Enteric Coated Tablet PO SCH (08:59)
[2020-03-09] MEDS ORDERED: Amlodipine 5 MG TAB PO SCH (09:00)
[2020-03-09] MEDS: Insulin Glargine 40 UNITS in Pre-Filled Syringe 1 EACH SC SCH (09:00)
[2020-03-09] MEDS: HumaLOG 300 UNITS/3 ML VIAL SC SCH ×3 (09:01→20:36)
[2020-03-09] MEDS: Enoxaparin Sodium 30 MG/0.3 ML SYRINGE SC SCH (09:02)
[2020-03-09] MEDS: Linezolid 600 MG in Premix Bag 1 BAG IVPB SCH ×2 (09:03→23:48)
[2020-03-09] MEDS: Carvedilol 6.25 MG TAB PO SCH ×2 (09:04→21:10)
--- NOTE | 2020-03-09 09:47 | PDOC.HOSPP ---
- Subjective Encounter Date: 03/09/20 Encounter Time: 08:00 Subjective: Patient still reports shooting burning pain in the right lower extremity. Overnight events include the patient was having trouble sleeping. improving overall - Objective Vital Signs & Weight: Vital Signs (12 hours) Temp Pulse Resp BP BP Pulse Ox 03/09/20 09:04 164/72 H 03/09/20 07:58 97.6 F 69 18 164/72 H 97 03/09/20 04:00 98.6 F 75 18 164/78 H 97 Weight Admit Weight 165 lb 9.6 oz Weight 165 lb 9.6 oz I&O: 03/08/20 03/09/20 03/10/20 06:59 06:59 06:59 Intake Total 1500 2260 Output Total 425 925 Balance 1075 1335 Result Diagrams: 03/08/20 07:25 03/08/20 15:54 Hospitalist ROS - Review of Systems Constitutional: reports: weakness (Weakness throughout the body). denies: fever , chills, sweats ENT: denies: throat pain, throat swelling Respiratory: denies: shortness of breath, hemoptysis, SOB with excertion Cardiovascular: denies: chest pain, light headedness Gastrointestinal: denies: nausea, vomiting, abdominal pain, diarrhea, constipation Musculoskeletal: reports: leg pain (shooting and burning pain in the right lower extremity) - Medication Medications: Active Medications Generic Name Dose Route Start Last Admin Trade Name Freq PRN Reason Stop Dose Admin Acetaminophen 1,000 mg 03/07/20 16:01 03/08/20 19:59 Tylenol PO 1,000 mg Q6H PRN Administration Moderate to Severe Pain (6-10) Aspirin 81 mg 03/08/20 09:00 03/09/20 08:59 Ecotrin PO 81 mg DAILY SIMEON Administration Atorvastatin Calcium 80 mg 03/07/20 21:00 03/08/20 19:55 Lipitor PO 80 mg HS SIMEON Administration Carvedilol 12.5 mg 03/09/20 09:00 03/09/20 09:04 Coreg PO 12.5 mg BID SIMEON Administration Enoxaparin Sodium 30 mg 03/07/20 09:00 03/09/20 09:02 Lovenox SC Not Given 0900 [facility] Ferrous Sulfate 325 mg 03/08/20 08:00 03/08/20 19:55 Feosol PO 325 mg Q2D@0800,1200,1700 SIMEON Administration Gabapentin 300 mg 03/09/20 09:00 03/09/20 08:59 Neurontin PO 300 mg DAILY SIMEON Administration Linezolid 600 mg/ Device 300 mls @ 150 mls/hr 03/07/20 21:00 03/09/20 09:03 IVPB 300 mls Q12HR SIMEON Administration Meropenem 500 mg/ Sodium 100 mls @ 200 mls/hr 03/07/20 18:00 03/09/20 05:10 Chloride IVPB 100 mls 0600,1800 SIMEON Administration Sodium Bicarbonate 150 meq/ 1,150 mls @ 50 mls/hr 03/08/20 08:30 03/08/20 09: 03 Dextrose/Water IV 1,150 mls INF SIMEON Administration Insulin Glargine 40 units/ 0.4 mls @ 0 mls/hr 03/09/20 09:00 03/09/20 09:00 Miscellaneous Medication SC 0.4 mls QAM SIMEON Administration As Directed Insulin Human Lispro 13 units 03/09/20 08:00 03/09/20 09:01 Humalog SC 13 unit TID-WM SIMEON Administration Levothyroxine Sodium 112 mcg 03/08/20 06:00 03/09/20 05:10 Synthroid PO 112 mcg 0600 SIMEON Administration Pantoprazole Sodium 40 mg 03/08/20 09:00 03/09/20 08:59 Protonix PO 40 mg DAILY SIMEON Administration Prednisone 12.5 mg 03/08/20 08:00 03/09/20 08:59 Prednisone PO 12.5 mg QAM-WM SIMEON Administration Senna/Docusate Sodium 1 tab 03/07/20 21:00 03/09/20 08:59 Senokot S PO 1 tab BID SIMEON Administration Sodium Bicarbonate 650 mg 03/08/20 09:00 03/09/20 08:59 Bicarbonate, Sodium PO 650 mg BID SIMEON Administration Sodium Chloride 10 ml 03/07/20 09:00 03/09/20 09:03 Flush - Normal Saline IVF 10 ml Q12HR SIMEON Administration - Exam General Appearance: awake alert Heart: RRR, no murmur, no gallops, no rubs, normal peripheral pulses Respiratory: CTAB, no wheezes, no rales, no ronchi, normal chest expansion, no tachypnea, normal percussion Gastrointestinal: soft, non-tender, non-distended, normal bowel sounds, no palpable masses, no bruit, no guarding, no rigidity Extremities - other findings: anasarca Skin - other findings: RLE superficial wound with overlying clean dressing Psychiatric: normal affect, normal behavior, A&O x 3 Hosp A/P (1) Complicated UTI (urinary tract infection) Code(s): N39.0 - URINARY TRACT INFECTION, SITE NOT SPECIFIED Status: Acute (2) Right lower lobe pneumonia Code(s): J18.9 - PNEUMONIA, UNSPECIFIED ORGANISM Status: Acute Qualifiers: Pneumonia type: aspiration pneumonia (3) Wound of left lower extremity Code(s): S81.802A - UNSPECIFIED OPEN WOUND, LEFT LOWER LEG, INITIAL ENCOUNTER Status: Acute - Plan RLL Pneumonia -qSOFA 0/3; no longer septic -continue empiric meropenem, linezolid complicated UTI -repeat UA shows bacteriuria nad pyuria; UCx growing E.coli -continue abovementioned antibiotics -ID onboard MANNIE (ATN) over CKD4 worse GFR likely related to reduced effective perfusion in context of third spacing due to hypoalbunemia and extensive RLE injury on RLE superficial excoriations with extensive cellulitis -wound care consulted -gabapentin reduced from 200bid to 300 once daily considering renal function; defer to nephrology #T2DM poorly controlled; increased insulin regimen based on correction Dispo/PPx will return to rehab once susceptibilities of E.coli are back and antiobiotics can be tailored GI PPx: pantoprazole DVT PPx: lovenox ELOS: 1-2 nights
[2020-03-09] MEDS ORDERED: Melatonin 3 MG TAB PO PRN (13:33)
[2020-03-09] MEDS: HumaLOG 300 UNITS/3 ML VIAL SC PRN ×2 (13:41→20:36)
[2020-03-09] MEDS ORDERED: Lidocaine 4% Topical Sol 50 ML BOT TOP PRN (13:56)
[2020-03-09 15:11] LABS: #Eosinphils 0.3 thou/uL (0.0-0.7); #Monocytes 0.4 thou/uL (0.11-0.59); %Basophils 0.4 % (0.0-1.0); %Eosinophils 2.2 % (0.0-10.0); %Lymphocytes 7.7 % (21.0-51.0); %Monocytes 3.1 % (0.0-10.0); %Neutrophils 86.6 % (42.0-75.0); Hemoglobin 7.2 g/dL (12.0-16.0); Mean Corpuscular HGB CONC 33.3 g/dL (32.0-36.0); Mean Corpuscular Hemoglobin 29.9 pg (27.0-31.0); Mean Platelet Volume 8.4 fL (7.4-10.4); Platelet Count 120 thou/uL (130-400); RBC Distribution Width 17.6 % (11.5-14.5); Red Blood Cell (RBC) Count 2.41 mill/uL (4.20-5.40); White Blood Cell (WBC) Count 12.7 thou/uL (4.8-10.8)
[2020-03-09 15:30] LABS: Anion Gap 14 mmol/L (10-20); BUN (Urea Nitrogen) 65 mg/dL (9.8-20.1); Calc. Creatinine Clearance 19 mL/min (70-130); Carbon Dioxide 24 mmol/L (23-31); Chloride 96 mmol/L (98-107); Estimated GFR-MDRD 13; Glucose 233 mg/dL (80-115); Potassium 4.6 mmol/L (3.5-5.1); Sodium 129 mmol/L (136-145)
[2020-03-09 15:31] LABS: Anion Gap 17 mmol/L (10-20); BUN (Urea Nitrogen) 65 mg/dL (9.8-20.1); BUN/Creatinine Ratio 18.36; Calc. Creatinine Clearance 19 mL/min (70-130); Calcium 8.2 mg/dL (7.8-10.44); Carbon Dioxide 23 mmol/L (23-31); Chloride 96 mmol/L (98-107); Estimated GFR-MDRD 13; Glucose 239 mg/dL (80-115); Iron 28 ug/dL (50-170); Iron Binding Capacity, Total 153 mcg/dL (265-497); Phosphorus 5.2 mg/dL (2.3-4.7); Potassium 4.7 mmol/L (3.5-5.1); Sodium 131 mmol/L (136-145)
[2020-03-09] MEDS ORDERED: Furosemide 40 MG/4 ML VIAL SLOW IVP SCH (16:30)
[2020-03-09] MEDS ORDERED: Albumin 25% 25 GM/100 ML BOT IVPB SCH (16:31)
[2020-03-09] MEDS ORDERED: Spironolactone 25 MG TAB PO SCH (16:45)
--- NOTE | 2020-03-09 17:00 | PRG ---
DATE OF SERVICE: 03/09/2020 SUBJECTIVE: The patient appears well today. She is much more oriented speaking with her family through a cellphone video conferencing application. A little bit of headaches, but not much. Still with that pain in the right lower extremity. She has a Hickman catheter still. No respiratory symptoms. No vomiting. Able to eat without problems. OBJECTIVE: VITAL SIGNS: She has been afebrile, BP 140/60, pulse 64, respirations ranging from 18 to 24, and O2 sats are 97. SKIN: The right lower extremity with areas of previous wound, which has healed properly and has dressing covering it. A Hickman catheter in place and peripheral IV access. LYMPH: No lymphadenopathy. HEENT: Ocular movements are conjugate. Oral cavity normal. LUNGS: Clear to auscultation and percussion. HEART: S1 and S2 regular rate. ABDOMEN: Soft, not distended. LABORATORY DATA: Sodium is 129, creatinine is 3.53, GFR is 13, and glucose is 233. Urinalysis with greater than 50 wbc's. We were able to retrieve E coli from the urine sample that was submitted initially to the lab and waiting on the susceptibility results. ASSESSMENT AND DISCUSSION: Chronic renal failure secondary to type 2 diabetes with superimposed acute tubular necrosis, probably giant cell arteritis, recent Pseudomonas aeruginosa bacteremia associated with cellulitis of the right lower extremity, now the most of the skin lesions have healed and now urinary catheterization for management of urinary retention probably due to neurogenic bladder with superimposed urinary tract infection by E coli, pending susceptibilities. So, the endpoint here is for us to have the results of the susceptibility studies and then transitioned to the antimicrobial that she will be receiving for the next 5 to 7 days when she gets transferred to rehab, the limiting factor here will be the renal function, we will have to wait for improvement in her renal function before she is discharged. Her mental status is much better and I think otherwise she is fairly stable for transfer, so just waiting on the kidney function to stabilize and start to improve, and the check services clerk will give us guidance as to the discharge. At the moment, the discharge would be safe. Job ID: [id number]
--- NOTE | 2020-03-09 17:20 | PRG ---
DATE OF SERVICE: 03/09/2020 SUBJECTIVE: A 64-year-old female seen in followup for acute on chronic renal failure as well as anasarca. Patient complains of right lower extremity pain. Oral intake is fair. Denied nausea or vomiting. OBJECTIVE: VITAL SIGNS: Temperature 97.7, pulse 64, respiratory rate 24, SpO2 97% on room air, blood pressure is 144/66. Intake and output in the last 24 hours showed total intake of 2260 with total output of 925. GENERAL: Female, in no obvious distress. Fatigued. Afebrile. HEENT: Normocephalic, atraumatic. Oral mucosa is moist. Conjunctivae, pallor noted. CARDIOVASCULAR: Regular rhythm and rate with normal heart sounds 1 and 2. RESPIRATORY: Fair air entry bilaterally with some transmitted breath sounds. GI: Full, soft, nontender with normal bowel sounds. UROGENITAL: Hickman catheter is in place draining some urine. MUSCULOSKELETAL: Right lower extremity covered with dressing anteriorly. Edema of all the extremities as well as lower back noted. SOLDERER ASSEMBLER: Conscious and alert, oriented to person and place at least. Some memory lapses noted. DIAGNOSTIC DATA: CBC showed WBC count of 12.7, hemoglobin of 7.2, platelet of 120. Chemistry showed sodium 131, potassium 4.7, chloride 96, CO2 of 23, BUN 65, creatinine 3.54, glucose 239, calcium 8.2, phosphorus 5.2, albumin 3.0. Iron chemistry showed serum iron of 28, TIBC of 153, iron saturation of 18, ferritin is 191. ASSESSMENT: 1. Acute renal failure: Due to hemodynamic factors related to sepsis and intravascular contraction. Creatinine is beginning to trend down with fluid resuscitation and improvement of hemodynamics. 2. Hyponatremia: Due to intravascular contraction with appropriate ADH secretion as well as free water intake. 3. Metabolic acidosis: Due to acute renal failure and sepsis, improving with alkali therapy. 4. Anemia in chronic kidney disease and chronic illness. 5. Nephrotic range proteinuria. 6. Anasarca. 7. Hyperphosphatemia. 8. Hypotension, improved. Blood pressure is now consistently above 140. 9. History of hypertension. PLAN: 1. We will discontinue sodium bicarbonate infusion. We will however continue with oral bicarb therapy. 2. We will start the patient on gentle diuretics given anasarca. We will also continue albumin therapy. We will also start spironolactone to help with anasarca. 3. We will continue to monitor intake and output as well as renal function and electrolytes. Further treatment to follow depending on hospital course. We will recommend starting low-dose antihypertensives with property. We will discontinue amlodipine. Cardizem or verapamil will be preferred to help reduce proteinuria. We defer to primary attending, however, to start antibiotics of his choice. Job ID: [id number]
[2020-03-09] MEDS: Atorvastatin Calcium 40 MG TAB PO SCH (21:10)
[2020-03-10] MEDS: Acetaminophen 500 MG TAB PO PRN (05:30)
[2020-03-10] MEDS: Levothyroxine Sodium 112 MCG TAB PO SCH (05:30)
[2020-03-10] MEDS: Meropenem 500 MG in Sodium Chloride 0.9% 100 ML IVPB SCH (05:34)
[2020-03-10 06:29] LABS: Albumin 3.3 g/dL (3.4-4.8); Anion Gap 15 mmol/L (10-20); BUN (Urea Nitrogen) 65 mg/dL (9.8-20.1); BUN/Creatinine Ratio 18.95; Calc. Creatinine Clearance 20 mL/min (70-130); Calcium 8.4 mg/dL (7.8-10.44); Carbon Dioxide 25 mmol/L (23-31); Chloride 96 mmol/L (98-107); Estimated GFR-MDRD 13; Glucose 164 mg/dL (80-115); Magnesium 1.7 mg/dL (1.6-2.6); Phosphorus 4.8 mg/dL (2.3-4.7); Potassium 4.9 mmol/L (3.5-5.1); Sodium 131 mmol/L (136-145)
[2020-03-10] MEDS: Sodium Bicarbonate Tab 325 MG TAB PO SCH ×2 (09:16→21:40)
[2020-03-10] MEDS: Aspirin 81 mg Enteric Coated Tablet PO SCH (09:16)
[2020-03-10] MEDS: Gabapentin 300 MG CAP PO SCH (09:16)
[2020-03-10] MEDS: Senokot S 8.6-50 MG TAB PO SCH ×2 (09:16→21:42)
[2020-03-10] MEDS: Spironolactone 25 MG TAB PO SCH (09:17)
[2020-03-10] MEDS: Ferrous Sulfate 325 MG TAB PO SCH ×3 (09:17→18:25)
[2020-03-10] MEDS: HumaLOG 300 UNITS/3 ML VIAL SC SCH ×3 (09:17→16:31)
[2020-03-10] MEDS: predniSONE 5 MG TAB PO SCH (09:19)
[2020-03-10] MEDS: Furosemide 40 MG/4 ML VIAL SLOW IVP SCH ×2 (09:20→21:41)
[2020-03-10] MEDS: Enoxaparin Sodium 30 MG/0.3 ML SYRINGE SC SCH (09:20)
[2020-03-10] MEDS: Insulin Glargine 40 UNITS in Pre-Filled Syringe 1 EACH SC SCH (09:21)
[2020-03-10] MEDS: HumaLOG 300 UNITS/3 ML VIAL SC PRN ×2 (09:23→16:32)
[2020-03-10] MEDS: Diltiazem HCl SR 60 mg Capsule PO SCH ×2 (10:38→21:41)
[2020-03-10] MEDS ORDERED: Albumin 25% 25 GM/100 ML BOT IVPB SCH (11:05)
--- NOTE | 2020-03-10 11:48 | PRG ---
DATE OF SERVICE: 03/10/2020 SERVICE: Nephrology. SUBJECTIVE: A 64-year-old female seen in followup for MANNIE and anasarca. The patient is complaining of right lower extremity pain. Otherwise, feeling better. Appetite and oral intake are good. Denied nausea or vomiting. OBJECTIVE: VITAL SIGNS: Temperature 97.9, pulse 63, respiratory rate 18, SpO2 of 96% on room air, blood pressure is 171/74. I and O in the last 24 hours showed total intake of 1210 with total output of 1250. GENERAL: Chronically ill-looking female, in no obvious distress. Afebrile. Anicteric. HEENT: Normocephalic, atraumatic. Oral mucosa is moist. CARDIOVASCULAR: Regular rhythm and rate. Normal heart sounds 1 and 2. RESPIRATORY: Fair air entry bilaterally with some transmitted breath sounds as well as right base crackle posteriorly. No rhonchi or use of accessory muscles appreciated. GI: Full, soft, nontender, and nondistended with normal bowel sounds. UROGENITAL: Hickman catheter is in place draining some urine. MUSCULOSKELETAL: Right lower extremity dressing noted. Generalized edema of the extremities and lower back noted. ELECTRIC TRANSFER OPERATOR: Conscious and alert. Oriented x3 with appropriate mental status. DIAGNOSTIC DATA: Chemistry today showed sodium 131, potassium 4.9, chloride 96, CO2 of 25, BUN 65, creatinine 3.43, glucose 164, calcium 8.4, phosphorus 4.8, magnesium 1.7, albumin 3.3. Vitamin D level is 9.6. PTH is 552.6. ASSESSMENT: 1. Acute kidney injury: Due to hemodynamic factors. Improving with improvement of hemodynamics and IV fluid. 2. Chronic kidney disease, stage 3/4. 3. Metabolic acidosis, improved. 4. Nephrotic range proteinuria. Due to diabetic nephropathy most likely. 5. Anasarca. 6. Vitamin D deficiency. 7. Secondary hyperparathyroidism due to vitamin D deficiency and chronic kidney disease. 8. Anemia in chronic kidney disease as well as chronic illness. 9. Hypertension: Blood pressure is appreciated and is consistently elevated. 10. Severe sepsis/hypotension: Resolved with fluid. PLAN: 1. We will continue alkali therapy. 2. We will escalate diuretic therapy with Lasix 40 mg b.i.d. 3. We will also continue spironolactone and monitor electrolytes, especially potassium. 4. We will also give additional dose of albumin x1 today. 5. Antihypertensive as per primary attending. Recommend nondihydropyridine calcium channel blockers to help with proteinuria. 6. Continue vitamin D supplementation. 7. Disposition: The patient can be discharged to rehab if deemed appropriate by the primary attending. Nephrology will continue to follow the patient at the rehab. Further treatment to follow depending on hospital course. We will get repeat renal function panel if the patient is here tomorrow morning. Job ID: [id number]
[2020-03-10] MEDS ORDERED: HYDROcodone/Acetaminophen 5/325 mg Tablet PO SCH (13:30)
[2020-03-10] MEDS ORDERED: hydrALAZINE 20 MG/ML VIAL SLOW IVP PRN (16:07)
--- NOTE | 2020-03-10 16:20 | PDOC.HOSPP ---
- Subjective Encounter Date: 03/10/20 Encounter Time: 08:00 Subjective: no overnight events. this morning, feeling better overall. Pain better controlled but worse especially after dressing change. Was to be discharged but [facility] lost [employer] bed so had to reapply. - Objective Vital Signs & Weight: Vital Signs (12 hours) Temp Pulse Resp BP Pulse Ox 03/10/20 08:00 97.9 F 63 18 171/74 H 96 Weight Admit Weight 165 lb 9.6 oz Weight 165 lb 9.6 oz I&O: 03/09/20 03/10/20 03/11/20 06:59 06:59 06:59 Intake Total 2260 1210 500 Output Total 925 1350 850 Balance 6245 -703 -663 Result Diagrams: 03/09/20 15:04 03/10/20 05:53 Additional Labs: Accuchecks 03/10/20 03/10/20 03/09/20 11:54 08:44 21:10 POC Glucose 223 H 178 H 117 H 03/09/20 16:31 POC Glucose 205 H Hospitalist ROS - Review of Systems Constitutional: denies: fever, chills, sweats, weakness, malaise, other Respiratory: denies: cough, dry, shortness of breath, hemoptysis, SOB with excertion, pleuritic pain, sputum, wheezing, other Cardiovascular: denies: chest pain, palpitations, orthopnea, paroxysmal noc. dyspnea, edema, light headedness, other Gastrointestinal: denies: nausea, vomiting, abdominal pain, diarrhea, constipation, melena, hematochezia, other - Medication Medications: Active Medications Generic Name Dose Route Start Last Admin Trade Name Klarissa PRN Reason Stop Dose Admin Acetaminophen 1,000 mg 03/07/20 16:01 03/10/20 05:30 Tylenol PO 1,000 mg Q6H PRN Administration Moderate to Severe Pain (6-10) Aspirin 81 mg 03/08/20 09:00 03/10/20 09:16 Ecotrin PO 81 mg DAILY SIMEON Administration Atorvastatin Calcium 80 mg 03/07/20 21:00 03/09/20 21:10 Lipitor PO 80 mg HS SIMEON Administration Diltiazem HCl 60 mg 03/10/20 09:00 03/10/20 10:38 Cardizem Sr PO 60 mg BID SIMEON Administration Enoxaparin Sodium 30 mg 03/07/20 09:00 03/10/20 09:20 Lovenox SC Not Given 0900 [facility] Ferrous Sulfate 325 mg 03/08/20 08:00 03/10/20 12:00 Feosol PO Not Given Q2D@0800,1200,1700 SIMEON Furosemide 40 mg 03/10/20 09:00 03/10/20 09:20 Lasix SLOW IVP 40 mg BID SIMEON Administration Gabapentin 300 mg 03/09/20 09:00 03/10/20 09:16 Neurontin PO 300 mg DAILY SIMEON Administration Meropenem 500 mg/ Sodium 100 mls @ 200 mls/hr 03/07/20 18:00 03/10/20 05:34 Chloride IVPB 100 mls 0600,1800 SIMEON Administration Insulin Glargine 40 units/ 0.4 mls @ 0 mls/hr 03/09/20 09:00 03/10/20 09:21 Miscellaneous Medication SC 0.4 mls QAM SIMEON Administration As Directed Insulin Human Lispro 13 units 03/09/20 08:00 03/10/20 12:00 Humalog SC Not Given TID-WM SIMEON Insulin Human Lispro 0 units 03/09/20 07:03 03/10/20 09:23 Humalog SC 3 unit .AGGRESSIVE SLIDING PRN Administration Aggressive Correctional Scale Levothyroxine Sodium 112 mcg 03/08/20 06:00 03/10/20 05:30 Synthroid PO 112 mcg 0600 SIMEON Administration Pantoprazole Sodium 40 mg 03/08/20 09:00 03/10/20 09:16 Protonix PO 40 mg DAILY SIMEON Administration Prednisone 12.5 mg 03/08/20 08:00 03/10/20 09:19 Prednisone PO 12.5 mg QAM-WM SIMEON Administration Senna/Docusate Sodium 1 tab 03/07/20 21:00 03/10/20 09:16 Senokot S PO 1 tab BID SIMEON Administration Sodium Bicarbonate 650 mg 03/08/20 09:00 03/10/20 09:16 Bicarbonate, Sodium PO 650 mg BID SIMEON Administration Sodium Chloride 10 ml 03/07/20 09:00 03/10/20 09:21 Flush - Normal Saline IVF 10 ml Q12HR SIMEON Administration Spironolactone 25 mg 03/10/20 08:00 03/10/20 09:17 Aldactone PO 25 mg QAM-WM SIMEON Administration - Exam General Appearance: NAD, awake alert Eye: PERRL, anicteric sclera ENT: normocephalic atraumatic, moist mucosa Neck: no JVD Heart: RRR, no murmur, no gallops, no rubs Respiratory: CTAB, no wheezes, no rales, no ronchi Gastrointestinal: soft, non-tender, non-distended, normal bowel sounds Extremities - other findings: anasarca; unchanged Psychiatric: normal affect, normal behavior, A&O x 3 Hosp A/P (1) Complicated UTI (urinary tract infection) Code(s): N39.0 - URINARY TRACT INFECTION, SITE NOT SPECIFIED Status: Acute (2) Right lower lobe pneumonia Code(s): J18.9 - PNEUMONIA, UNSPECIFIED ORGANISM Status: Acute Qualifiers: Pneumonia type: aspiration pneumonia (3) Wound of left lower extremity Code(s): S81.802A - UNSPECIFIED OPEN WOUND, LEFT LOWER LEG, INITIAL ENCOUNTER Status: Acute - Plan complicated UTI -Urine culture shows E. coli. Changed to zosyn to cover UTI and pneumonia -Pending ID recommendations regarding outpatient antibiotics RLL pneumonia started zosyn MANNIE (ATN) over CKD4 improving; Per nephrology can't start EFFIE inhibitor or ARB so started calcium channel kosta to address proteinuric CKD RLE superficial excoriations s/p extensive cellulitis -Wound care on board -Topical lidocaine 30 minutes before dressing change -Added Baker for pain #T2DM Better controlled, continue to adjust based on correction dose -Gabapentin 300 mg once daily, renally dosed for peripheral neuropathy Dispo/PPx Ready for discharge however last [facility] bed due to [employer] insurance; previous [facility] physician Dr. Nunez notified regarding plan to discharge; family updated regarding plan to discharge as well GI PPx: pantoprazole DVT PPx: lovenox ELOS: 2 nights
[2020-03-10 19:14] LABS: CMV DNA-PCR Test Positive < 200 IU/mL (Negative)
[2020-03-10] MEDS: HYDROcodone/Acetaminophen 5/325 mg Tablet PO PRN (20:24)
[2020-03-10] MEDS ORDERED: cefOXitin 1 GM in Sodium Chloride 0.9% 100 ML IVPB SCH (21:00)
[2020-03-10] MEDS: Piperacillin/Tazobactam 2.25 GM in Sodium Chloride 0.9% 100 ML IVPB SCH (21:34)
[2020-03-10] MEDS: Atorvastatin Calcium 40 MG TAB PO SCH (21:41)
[2020-03-11] MEDS: Piperacillin/Tazobactam 2.25 GM in Sodium Chloride 0.9% 100 ML IVPB SCH (05:14)
[2020-03-11] MEDS: Levothyroxine Sodium 112 MCG TAB PO SCH (05:15)
[2020-03-11] MEDS: HYDROcodone/Acetaminophen 5/325 mg Tablet PO PRN ×2 (05:38→11:56)
[2020-03-11 08:04] LABS: #Basophils 0.1 thou/uL (0.0-0.2); #Eosinphils 0.2 thou/uL (0.0-0.7); #Lymphocytes 2.5 thou/uL (1.20-3.40); #Monocytes 1.2 thou/uL (0.11-0.59); #Neutrophils 5.1 thou/uL (1.40-6.50); %Basophils 0.8 % (0.0-1.0); %Eosinophils 2.1 % (0.0-10.0); %Lymphocytes 27.6 % (21.0-51.0); %Monocytes 13.1 % (0.0-10.0); %Neutrophils 56.4 % (42.0-75.0); Hemoglobin 7.4 g/dL (12.0-16.0); Mean Corpuscular HGB CONC 32.6 g/dL (32.0-36.0); Mean Corpuscular Hemoglobin 29.3 pg (27.0-31.0); Mean Platelet Volume 8.4 fL (7.4-10.4); Platelet Count 151 thou/uL (130-400); RBC Distribution Width 17.3 % (11.5-14.5); Red Blood Cell (RBC) Count 2.52 mill/uL (4.20-5.40)
[2020-03-11] MEDS: predniSONE 5 MG TAB PO SCH (08:15)
[2020-03-11] MEDS: HumaLOG 300 UNITS/3 ML VIAL SC SCH ×2 (08:17→12:53)
[2020-03-11] MEDS: HumaLOG 300 UNITS/3 ML VIAL SC PRN ×2 (08:17→12:53)
[2020-03-11] MEDS: Spironolactone 25 MG TAB PO SCH (08:18)
[2020-03-11] MEDS: Aspirin 81 mg Enteric Coated Tablet PO SCH (08:18)
[2020-03-11] MEDS: Enoxaparin Sodium 30 MG/0.3 ML SYRINGE SC SCH (08:19)
[2020-03-11] MEDS: Furosemide 40 MG/4 ML VIAL SLOW IVP SCH (08:20)
[2020-03-11 08:21] LABS: Albumin 3.4 g/dL (3.4-4.8); Anion Gap 16 mmol/L (10-20); BUN (Urea Nitrogen) 64 mg/dL (9.8-20.1); BUN/Creatinine Ratio 18.93; Calc. Creatinine Clearance 20 mL/min (70-130); Calcium 8.5 mg/dL (7.8-10.44); Carbon Dioxide 24 mmol/L (23-31); Chloride 98 mmol/L (98-107); Estimated GFR-MDRD 14; Glucose 180 mg/dL (80-115); Phosphorus 4.7 mg/dL (2.3-4.7); Sodium 133 mmol/L (136-145)
[2020-03-11] MEDS: Gabapentin 300 MG CAP PO SCH (08:21)
[2020-03-11] MEDS: Sodium Bicarbonate Tab 325 MG TAB PO SCH (08:21)
[2020-03-11] MEDS: Senokot S 8.6-50 MG TAB PO SCH (08:22)
[2020-03-11 08:27] VITALS: BP 150/67; TEMP 97.5
[2020-03-11] MEDS ORDERED: Insulin Glargine 22 UNITS in Pre-Filled Syringe 1 EACH SC SCH ×2 (09:00→21:00)
[2020-03-11] MEDS ORDERED: Ergocalciferol 1.25 MG(50,000 UNITS) CAP PO SCH (09:00)
[2020-03-11] MEDS ORDERED: hydrALAZINE 25 MG TAB PO SCH (09:00)
[2020-03-11] MEDS ORDERED: Loperamide HCl 2 MG CAP PO SCH (12:30)
[2020-03-11] MEDS ORDERED: Meropenem 500 MG in Sodium Chloride 0.9% 100 ML IVPB SCH (13:00)
[2020-03-11] MEDS: Acetaminophen 500 MG TAB PO PRN (13:50)
--- NOTE | 2020-03-11 14:23 | PRG ---
DATE OF SERVICE: 03/11/2020 SUBJECTIVE: A 64-year-old female seen in followup for MANNIE and anasarca. The patient reports feeling better. Making good urine. Still swollen generally. No fever, nausea, vomiting, or abdominal pain. Still complaining of right lower extremity pain. OBJECTIVE: VITAL SIGNS: Temperature 97.5, pulse 58, respiratory rate 18, SpO2 of 100% on room air, blood pressure is 150/67. Intake and output in the last 24 hours showed total intake of 1261 with total output of 1700. GENERAL: Comfortable female, in no distress. Afebrile. HEENT: Normocephalic, atraumatic. Oral mucosa is moist. CARDIOVASCULAR: Regular rhythm and rate with normal heart sounds 1 and 2. RESPIRATORY: Fair air entry bilaterally with few right base crackles posteriorly. No respiratory distress appreciated. GI: Full, soft, nontender, nondistended with normal bowel sounds. UROGENITAL: Hickman catheter is in place draining some urine. EXTREMITIES: Right lower extremity covered with dressing. Generalized edema moderate to severe of all the extremities as well as lower back. TERMINAL CLERK: Conscious, alert, and oriented x3 with appropriate mental status. Cranial nerves 2 through 12 are grossly intact. DIAGNOSTIC DATA: CBC showed WBC count of 9.0, hemoglobin of 7.4, and platelet of 151. Chemistry showed sodium 133, potassium 5.0, chloride 98, CO2 of 24, BUN 64, creatinine 3.38, glucose 180, calcium 8.5, phosphorus 4.7, albumin 3.4. ASSESSMENT: 1. Acute kidney injury: Due to hemodynamic factors. BUN and creatinine are trending down, but with marginally. The patient however is also getting diuretics for anasarca. 2. Anasarca: Due to hypoalbuminemia as well as chronic illness and chronic kidney disease. The patient has nephrotic-range proteinuria from diabetic nephropathy. 3. Nephrotic-range proteinuria. 4. Chronic kidney disease stage 3 to 4. 5. Hypertension. 6. Diabetes mellitus with diabetic nephropathy. 7. Hyperphosphatemia: Improved. We will continue with renal diet. PLAN: 1. We will continue diuretic therapy with Lasix 40 mg IV b.i.d. We will however transition to oral diuretics if the patient will be discharged to rehab. 2. We will also continue spironolactone 25 mg daily and monitor renal function as well as electrolytes with particular emphasis to potassium. 3. We will change diltiazem from 60 mg p.o. b.i.d. to extended release 120 mg p.o. daily. 4. We will monitor vitals with a view to adding another antihypertensive to get adequate BP control. 5. We will plan to start the patient on iron therapy once acute infection has subsided. We will continue erythrocyte-stimulating agent. 6. We will also continue alkali therapy with sodium bicarbonate. 7. We will recheck renal function in the morning. 8. We will also monitor intake and output. Further treatment to follow depending on hospital course. The patient can be discharged from Nephrology point of view to rehab if cleared by primary attending. Job ID: [id number]
--- NOTE | 2020-03-11 15:03 | DIS ---
DATE OF ADMISSION: 03/07/2020 DATE OF DISCHARGE: 03/11/2020 PRIMARY CARE PROVIDER: Dr. Helga Jorge. DISCHARGE DIAGNOSES: 1. Sepsis. 2. Aspiration pneumonia. 3. Urinary tract infection. 4. Acute on chronic stage 4 renal failure. 5. Hyponatremia. 6. Metabolic acidosis. 7. Physical deconditioning. CONDITION OF PATIENT ON THE DAY OF DISCHARGE: Stable. I assessed Mr. Mackey on the day of discharge. She denies any chest pain or shortness of breath. Vital signs are stable. S1 and S2 are heard, regular. Lungs are clear to auscultation bilaterally. CONSULTATIONS DURING THIS HOSPITALIZATION: Nephrology, Dr. Gonzales and Infectious Diseases, Dr. Tee. DISCHARGE MEDICATIONS: 1. Aspirin 81 mg daily. 2. Lipitor 80 mg at bedtime. 3. Aranesp 60 mcg every week. 4. Levothyroxine 112 mcg daily. 5. Prednisone 12.5 mg daily, to be tapered to 10 mg daily after March 15. 6. Terazosin 2 mg daily. 7. Ergocalciferol 1.25 mg every week. 8. Calcitriol 0.25 mcg daily. 9. Cardizem CD 120 mg daily. 10. Trulicity 1.5 mg subcutaneously every week. 11. Ferrous sulfate 325 mg every other day. 12. Gabapentin 300 mg daily. 13. Hydralazine 25 mg three times a day. 14. Lantus 22 units two times a day. 15. Meropenem 500 mg every 12 hours intravenously, 6 more doses. 16. Spironolactone 25 mg daily. 17. Torsemide 20 mg two times a day. 18. Acetaminophen p.r.n. 19. Lidocaine topical solution p.r.n. 20. Melatonin p.r.n. HOSPITAL COURSE: Ms. Mackey is a pleasant 64-year-old lady, who was admitted to [facility] on March 07, 2020, for sepsis secondary to aspiration pneumonia and urinary tract infection. Please refer to Dr. Redmond's history and physical note dated March 07, 2020, for further details. She also had acute on chronic renal failure. She was seen by Infectious Diseases and Nephrology Services. She was treated with broad-spectrum antibiotics. Urine cultures grew Escherichia coli that was resistant to ampicillin, ampicillin/sulbactam, cefepime, ceftazidime, ceftriaxone, ciprofloxacin, and levofloxacin, sensitive to amikacin, cefoxitin, gentamicin, meropenem, nitrofurantoin, Zosyn, tobramycin, and Bactrim. She was evaluated for therapy services. She is being discharged to [facility] for further management. On the day of discharge, she has sodium of 133, potassium 5.0, blood urea nitrogen 64, creatinine 3.38. White count 9000, hemoglobin 7.4, and platelet count 151,000. POST-ACUTE CARE FOLLOWUP: With primary care provider in [address] Gonzales in 3 days. DIET: Diabetic, heart healthy, and renal. ACTIVITY: As tolerated. DISCHARGE DESTINATION: [facility]. TIME SPENT: Total amount of time spent coordinating this discharge: 31 minutes. Job ID: [id number]
--- NOTE | 2020-03-13 05:29 | PQF ---
CLINICAL DOCUMENTATION CLARIFICATION FORM: Dear : Salazar Mackey Date / Time: 03/13/2020 05:28 Please exercise your independent, professional judgment in responding to the clarification form. Clinical indicators are provided on the bottom of this form for your review Please check appropriate box(es): [ x ] UTI due to indwelling cedillo catheter [ ] UTI not due to indwelling cedillo catheter [ ] Other diagnosis [ ] Unable to determine In addition, please specify if: [ x ] UTI related to sepsis [ ] UTI not related to sepsis [ ] Unable to determine Physician Signature: Date/Time: For continuity of documentation, please document condition throughout progress notes and discharge summary. Thank You. To be completed by CDI/Coding staff for physician review: Present Clinical Indicators - Signs / Symptoms / Labs Results and Location in Medical Record [x] Complicated UTI PN 03/08 [x] sepsis from either UTI and or pneumonia PN 03/07 [x] presented with fever ED Notes 03/07 [x] She has a cedillo catheter in place Consult 03/07 [x] Abnormal urinalysis with indwelling cedillo catheter Consult 03/07 [x] now urinary catheterization for the management of urinary retention probably due to neurogenic bladder with superimposed UTI Consult 03/07 [x] WBC: 03/07=20.2 03/08=13.2 03/09=12.7 Labs 03/07 [x] Urine culture:E.coli Collected 03/07 Present Risk Factors Results and Location in Medical Record [x] DM ED Notes 03/07 [x] CKD ED Notes 03/07 [x] 64 years old female HP 03/07 [x] Presence of cedillo catheter HP 03/07 [x] Sepsis HP 03/07 [x] Neurogenic bladder PN 03/09 [x] ATN PN 03/11 Present Treatments Results and Location in Medical Record [x] CT of abdomen/pelvis Collected 03/07 [x] IVF HP 03/07 [x] Cefepime 2gm IV OCT 22 [x] Cefoxitin 1gm IV OCT 22 [x] Cedillo catheter changed HP 03/07 [x] Zosyn 2.25gm IV OCT 22 [x] Urine culture Collected 03/07 CDS/Credit Collection Associate Signature: Jossy Bridges Phone #: [phone] Date/Time:03/13/20 05:28 This is a permanent part of the Medical Record [facility]
--- NOTE | 2020-03-13 22:27 | PQF ---
CLINICAL DOCUMENTATION CLARIFICATION FORM: Dear : Salazar Mackey Date / Time: 03/13/2020 22:24 Please exercise your independent, professional judgment in responding to the clarification form. Clinical indicators are provided on the bottom of this form for your review Can you please specify the etiology of patients sepsis? Please check appropriate box(es): [ ] Sepsis due to aspiration Pneumonia [ ] Sepsis due to UTI from cedillo catheter [ x ] Sepsis due to both aspiration pneumonia and UTI from cedillo catheter [ ] Other diagnosis [ ] Unable to determine Physician Signature: Date/Time: For continuity of documentation, please document condition throughout progress notes and discharge summary. Thank You. To be completed by CDI/Coding staff for physician review: Present Clinical Indicators - Signs / Symptoms / Labs Results and Location in Medical Record [x] sepsis from either UTI and or pneumonia PN 03/07 [x] presented with fever ED Notes 03/07 [x] She has a cedillo catheter in place Consult 03/07 [x] Abnormal urinalysis with indwelling cedillo catheter Consult 03/07 [x] now urinary catheterization for the management of urinary retention probably due to neurogenic bladder with superimposed UTI Consult 03/07 [x] WBC: 03/07=20.2 03/08=13.2 03/09=12.7 Labs 03/07 [x] Urine culture:E.coli Collected 03/07 [x] Blood culture:no growth Collected 03/07 [x] Lactate: 1.1 Procalcitonin: 2.25 Labs 03/07 [x] Aspiration pneumonia DS 03/11 [x] Temp= 97.7 Pulse=83 Respi=18 BP=99/49 Vital Signs 03/07 Present Risk Factors Results and Location in Medical Record [x] DM ED Notes 03/07 [x] CKD ED Notes 03/07 [x] 64 years old female HP 03/07 [x] Presence of cedillo catheter HP 03/07 [x] Neurogenic bladder PN 03/09 [x] ATN PN 03/11 Present Treatments Results and Location in Medical Record [x] CT of abdomen/pelvis Collected 03/07 [x] IVF HP 03/07 [x] Cefepime 2gm IV MAR 03/07 [x] Cefoxitin 1gm IV MAR 03/07 [x] Cedillo catheter changed HP 03/07 [x] Zosyn 2.25gm IV MAR 07/24 [x] Urine and blood culture Collected 03/07 CDS/[employer] Signature: Jossy Bridges Phone #: [facility] [phone] Date/Time:03/13/20 22:24 This is a permanent part of the Medical Record [facility]
== END 2020-03-11 15:17 | DRG 871 ==
LOC: ERS 06:05 → ONC 11:40
PROVIDERS: ADMIT Internal Medicine; ATTEND Internal Medicine
DX: A41.9 Sepsis, unspecified organism (principal); J69.0 Pneumonitis due to inhalation of food and vomit; G92 Toxic encephalopathy; N17.0 Acute kidney failure with tubular necrosis; T83.518A Infection and inflammatory reaction due to other urinary catheter, initial encounter; H34.11 Central retinal artery occlusion, right eye; N18.4 Chronic kidney disease, stage 4 (severe); N39.0 Urinary tract infection, site not specified; L03.115 Cellulitis of right lower limb; E87.1 Hypo-osmolality and hyponatremia; E87.2 Acidosis; N25.81 Secondary hyperparathyroidism of renal origin; E11.22 Type 2 diabetes mellitus with diabetic chronic kidney disease; E03.9 Hypothyroidism, unspecified; D63.1 Anemia in chronic kidney disease; E78.5 Hyperlipidemia, unspecified; M31.6 Other giant cell arteritis; S80.811A Abrasion, right lower leg, initial encounter; X58.XXXA Exposure to other specified factors, initial encounter; E88.09 Other disorders of plasma-protein metabolism, not elsewhere classified; B96.20 Unspecified Escherichia coli [E. coli] as the cause of diseases classified elsewhere; R65.20 Severe sepsis without septic shock; N31.2 Flaccid neuropathic bladder, not elsewhere classified; E83.39 Other disorders of phosphorus metabolism; E55.9 Vitamin D deficiency, unspecified; E87.5 Hyperkalemia; E83.51 Hypocalcemia; I12.9 Hypertensive chronic kidney disease with stage 1 through stage 4 chronic kidney disease, or unspecified chronic kidney disease; Z79.82 Long term (current) use of aspirin; Z79.4 Long term (current) use of insulin; Z79.52 Long term (current) use of systemic steroids; Z79.899 Other long term (current) drug therapy; Y84.6 Urinary catheterization as the cause of abnormal reaction of the patient, or of later complication, without mention of misadventure at the time of the procedure
CPT/HCPCS: 36415; 36416; 71045; 74176; 80048; 80069; 81003; 81015; 82306; 82553; 82728; 83540; 83550; 83605; 83690; 83735; 83970; 84100; 84145; 84484; 85025; 87040; 87077; 87086; 87186; 87449; 87497; 87899; 93005; 93010; 96361; 96365; 96367; J0360; J0692; J1650; J1815; J1940; J2020; J2185; J2543; J3490; J7070; J7512; P9047